=== PATIENT | female | born 1965 | race Caucasian/White ===

== ENCOUNTER 2019-03-19 16:15 | Emergency (ER) | payer OTHER ==
[~2019-03-19] VITALS: Ht 162.6 cm; Wt 70.3 kg
[2019-03-19] MEDS ORDERED: ENALAPRIL MALE2.5 MG (16:57)
== END 2019-03-19 18:20 | disposition home or self-care (01) ==
LOC: ER 16:15
DX: B34.9 Viral infection, unspecified (principal)